=== PATIENT | male | born 1980 | race African-American/Black ===

== ENCOUNTER 2023-10-23 07:47 | Emergency (ER) | payer MEDICAID, OTHER ==
[~2023-10-23] VITALS: Ht 172.7 cm; Wt 98.3 kg
[2023-10-23 08:49] VITALS: BP 170/101; PULSE 126; TEMP 97.1
[2023-10-23] MEDS ORDERED: PRED20TA2 PO (09:42)
[2023-10-23] MEDS ORDERED: PROM1SOL4 PO (09:42)
[2023-10-23] MEDS ORDERED: ALBU108A5 IN (09:42)
[2023-10-23 09:48] VITALS: RESP 18; O2SAT 97
[2023-10-23] MEDS: guaiFENesin-DM 100/10mg/5ml SYR PO ONE (10:00)
[2023-10-23] MEDS: IPRATROPIUM BROM 0.5 MG/2.5ML INH SOL NEB ONE (10:01)
[2023-10-23] MEDS: ALBUTEROL SULF 2.5 MG/0.5ML(0.5%) NEB SOLN NEB ONE (10:01)
[2023-10-23] MEDS: DexAMETHasone 4 MG TAB PO ONE (10:05)
== END 2023-10-23 10:12 | disposition home or self-care (01) ==
LOC: ER 07:47
DX: J40 Bronchitis, not specified as acute or chronic (principal); R05.1 Acute cough
CPT/HCPCS: 71046; 94640; 99283; J7644; J8540

== ENCOUNTER 2024-06-11 08:41 | Emergency (ER) | payer MEDICAID, OTHER ==
[~2024-06-11] VITALS: Ht 172.7 cm; Wt 89.4 kg
[~2024-06-11 08:41] MED LIST: ALBU108A5 IN; PRED20TA2 PO; PROM1SOL4 PO
[2024-06-11 09:06] VITALS: BP 93/63; PULSE 98; RESP 18; TEMP 97.6; O2SAT 97
[2024-06-11] MEDS: HYDROcodone-ACET 5/325MG TAB PO ONE (09:32)
[2024-06-11] MEDS ORDERED: BACL10TA PO (12:37)
[2024-06-11] MEDS ORDERED: IBUP-1456 PO (12:37)
== END 2024-06-11 12:28 | disposition home or self-care (01) ==
LOC: ER 08:41
DX: S92.102A Unspecified fracture of left talus, initial encounter for closed fracture (principal); S46.812A Strain of other muscles, fascia and tendons at shoulder and upper arm level, left arm, initial encounter; S29.012A Strain of muscle and tendon of back wall of thorax, initial encounter; S70.312A Abrasion, left thigh, initial encounter; V29.408A Other motorcycle driver injured in collision with unspecified motor vehicles in traffic accident, initial encounter; Y93.55 Activity, bike riding; Y92.89 Other specified places as the place of occurrence of the external cause; Y99.8 Other external cause status
CPT/HCPCS: 29515; 72070; 72128; 72131; 73030; 73610